=== PATIENT | female | born 1955 | race Caucasian/White ===

== ENCOUNTER → 2016-10-12 | Outpatient (CLI) | payer BC ==
[~2016-10-12] MED LIST: CERTAGEN PO; CRESTOR PO; CYMBALTA PO; EC-NAPROSYN500 MG PO; FEMARA2.5 MG PO; FEOSOL PO; LASIX PO; MAXIDE PO; OYSTER CALCIUM500 MG PO; PROZAC PO; SYNTHROID PO; VITAMIN D 4001 UDTAB PO; WELLBUTRIN PO; ZESTRIL10 M2 PO
[2016-10-12 08:13] LABS: BASOPHIL% 0.7 % (0-2.5); EOSINOPHIL# 0.1 X10e3 (0-0.7); EOSINOPHIL% 2.4 % (0.0-7.0); HEMATOCRIT 37.4 % (35.0-45.0); HEMOGLOBIN 12.7 gm/dL (12.0-16.0); LYMPHOCYTE# 1.9 X10e3 (1.0-3.5); LYMPHOCYTE% 40.7 % (17.0-45.0); MEAN CELL VOLUME 88.6 FL (83-96); MEAN CORPUSCULAR HGB CONC 33.9 g/dL (30-36); MEAN PLATELET VOLUME 8.7 FL (6.5-11.5); MONOCYTE# 0.6 X10e3 (0-1.0); MONOCYTE% 12.4 % (3.0-12.0); NEUTROPHIL% 43.8 % (40-75); PLATELET COUNT 251 X10e3 (140-420); RED BLOOD COUNT 4.23 X10e (3.90-5.30); RED CELL DISTRIBUTION WIDTH 13.1 % (11.0-15.5); WHITE BLOOD COUNT 4.6 X10e3 (4.0-10.5)
[2016-10-12 08:19] LABS: DIFF IND NO
[2016-10-12 09:21] LABS: BILIRUBIN,TOTAL 0.5 mg/dL (0.2-2.0); BUN/CREATININE RATIO 11.25; CALCIUM SERUM 8.9 mg/dL (8.4-10.2); CREATININE SERUM 0.8 mg/dL (0.6-1.4); GLOM FILT RATE Estimated 80.8 mL/min (>60); POTASSIUM 4.6 mmol/L (3.5-5.1); PROTEIN TOTAL SERUM 6.8 g/dL (6.0-8.3)
[2016-10-16 01:19] LABS: HEP C AB (HEPPAN) Nonreactive (Nonreactive); HEP C AB SIGNAL TO CUTOFF 0.01 ratio (<1.00)
== END | disposition home or self-care (01) ==
LOC: CLAB 07:44
PROVIDERS: Nurse Practitioner
DX: Z00.00 Encounter for general adult medical examination without abnormal findings (principal); Z11.59 Encounter for screening for other viral diseases; E03.9 Hypothyroidism, unspecified; R00.2 Palpitations; R00.0 Tachycardia, unspecified; I10 Essential (primary) hypertension
CPT/HCPCS: 36415; 80053; 80061; 83036; 84443; 85025; 86803

== ENCOUNTER → 2016-11-16 | Outpatient (CLI) | payer BC ==
--- NOTE | ~2016-11-16 | BD1 ---
[facility] A Service of [facility] RADIOLOGY TEXT RESULTS PATIENT: CARLOS EDUARDO MANUEL LOCATION: [facility] : 59 UNIT #: [id number] AGE: [address]: RENAE ERICKSON APRN SEX: F ORDER DR: [id number] [facility] [address] [place], [place] [address] [id number] MR#: [id number] #: [id number] NAME: CARLOS EDUARDO MANUEL : 1955 SEX: F STUDY DATE/TIME: 11/16/2016 14:53 UNIT: [facility] ROOM: STUDY DESCRIPTION: BD Dexa Bone Dens 1+ Site Attending Physician: Renae Erickson Aprn Referring Physician: Renae Erickson Aprn Ordering Physician: Physician Non-Staff Primary Care Physician: Renae Erickson Aprn MEDICAL IMAGING REPORT This report is preliminary unless electronic signature is present EXAM Bone density spine, hip, 11/16/16. HISTORY Postmenopausal. Former smoker. FINDINGS Bone density scanning performed upper 4 lumbar vertebral segments and proximal left femur in 61-year-old, 175-pound female. No comparison. L1-L4: Bone mineral density 0.833 g/cm2 for T-score of 1.97 deviation below mean for reference population normal young individuals and Z-score of 0.6 standard deviation below mean for age-match population. Proximal right femur total bone mineral density 0.707 g/cm2 for T-score 1.9 standard deviation below mean for reference population normal young individuals and Z-score 1.0 stent deviation below mean for age-match population. In the left femoral neck, bone density is 0.631 g/cm2 for T-score 2.0 standard deviation below mean for reference population normal young individuals and Z-score 0.7 standard deviations below the mean for age-match population. IMPRESSION Osteopenia in the left femoral neck. Patient felt to be at increased risk for fracture. Treatment options may be considered. Continued surveillance is recommended. Dictated by... Nirav Martins M.D. THIS IS AN ELECTRONICALLY VERIFIED REPORT Nirav Martins M.D. at 11/17/2016 4:57 PM [facility] A Service of [facility] RADIOLOGY TEXT RESULTS PATIENT: CARLOS EDUARDO MANUEL LOCATION: [facility] : 59 UNIT #: [id number] AGE: [address]: RENAE ERICKSON APRN SEX: F ORDER DR: BRANDY/sandi TD: 11/17/2016 11:53 JOB #: [id number] MEDICAL IMAGING REPORT Page 1 of 1 COPY
== END | disposition home or self-care (01) ==
LOC: CECH 13:44
DX: M85.80 Other specified disorders of bone density and structure, unspecified site (principal); R00.2 Palpitations; R00.0 Tachycardia, unspecified; M25.472 Effusion, left ankle; M25.471 Effusion, right ankle; M25.474 Effusion, right foot; M25.475 Effusion, left foot; M85.88 Other specified disorders of bone density and structure, other site; I51.89 Other ill-defined heart diseases
CPT/HCPCS: 77080; 93306